=== PATIENT | male | born 1990 | race Hispanic/Latino ===

== ENCOUNTER 2019-03-19 12:59 | Emergency (ER) | payer SELFPAY ==
--- NOTE | 2019-03-19 13:42 | RAD REPORT ---
EXAM DESCRIPTION: RAD - Chest Pa And Lat (2 Views) - 03/19/2019 1:33 pm CLINICAL HISTORY: COUGH Chest pain. COMPARISON: No comparisons FINDINGS: The lungs are clear. The heart is normal in size. No displaced fractures. IMPRESSION: No acute or concerning finding suspected.
[2019-03-19] MEDS ORDERED: IPRATROPIUM BROM 0.5MG/2.5ML ONE (13:59)
[2019-03-19] MEDS ORDERED: predniSONE 20 MG TAB ONE (13:59)
[2019-03-19] MEDS ORDERED: ALBUTEROL 2.5 MG/3 ML NEB SOL ONE (13:59)
--- NOTE | 2019-03-19 14:19 | ER ---
Nurse's Notes [facility] Name: Dar Barth Age: 28 yrs Sex: Male : 1990 Arrival Date: 03/19/2019 Time: 13:01 Bed 14 Private MD: Diagnosis: Wheezing Presentation: 03/19 13:03 Presenting complaint: Patient states: "I've been wheezing since November". Pt states aa5 "I've been taking my mom's albuterol and it helps". Transition of care: patient was not received from another setting of care. Onset of symptoms was February 2019. Risk Assessment: Do you want to hurt yourself or someone else? Patient reports no desire to harm self or others. Initial Sepsis Screen: Does the patient meet any 2 criteria? No. Patient's initial sepsis screen is negative. Does the patient have a suspected source of infection? No. Patient's initial sepsis screen is negative. Care prior to arrival: None. 13:03 Method Of Arrival: Ambulatory aa5 13:03 Acuity: HÉCTOR 3 aa5 Historical: - Allergies: 13:06 No Known Allergies; aa5 - Home Meds: 13:06 None [Active]; aa5 - PMHx: 13:06 None; aa5 - PSHx: 13:06 None; aa5 - Immunization history:: Flu vaccine is not up to date. - Social history:: Smoking status: Patient/guardian denies using tobacco. - Ebola Screening: : No symptoms or risks identified at this time. Screenin:30 Abuse screen: Denies threats or abuse. Denies injuries from another. Nutritional ph screening: No deficits noted. Tuberculosis screening: No symptoms or risk factors identified. Fall Risk None identified. Assessment: 13:30 General: Appears in no apparent distress. comfortable, well groomed, Behavior is calm, ph cooperative, appropriate for age, Denies fever, feeling ill. Pain: Denies pain. Neuro: Level of Consciousness is awake, alert, obeys commands, Oriented to person, place, time, situation. Cardiovascular: Capillary refill < 3 seconds in bilateral fingers Patient's skin is warm and dry. Respiratory: Reports shortness of breath Airway is patent Respiratory effort is even, unlabored, Respiratory pattern is regular, symmetrical, Breath sounds are clear in left posterior upper lobe, right posterior upper lobe, left posterior lower lobe, right posterior middle lobe and right posterior lower lobe Breath sounds with wheezes in mediastinum Denies cough. Derm: Skin is intact, is healthy with good turgor, Skin is pink, warm \\T\\ dry. Musculoskeletal: Circulation, motion, and sensation intact. Range of motion: intact in all extremities. Vital Signs: 13:06 BP 135 / 89; Pulse 58; Resp 18 S; Temp 97.2(TE); Pulse Ox 99% on R/A; Weight 74.84 kg aa5 (R); Height 5 ft. 9 in. (175.26 cm) (R); Pain 0/10; 14:30 BP 126 / 78; Pulse 72; Resp 18; Temp 98.0; Pulse Ox 99% on R/A; ph 13:06 Body Mass Index 24.37 (74.84 kg, 175.26 cm) aa5 ED Course: 13:01 Patient arrived in ED. aa5 13:03 Arm band placed on. aa5 13:05 Triage completed. aa5 13:08 Whitney Espinoza [facility]C [facility]. kb 13:08 Musa Valera MD is Attending Physician. kb 13:30 Patient has correct armband on for positive identification. Bed in low position. Call ph light in reach. Side rails up X 1. 13:34 Chest Pa And Lat (2 Views) XRAY In Process Unspecified. EDMS 14:08 Josie Knight, RN is Primary Nurse. ph 14:40 No provider procedures requiring assistance completed. Patient did not have IV access ph during this emergency room visit. Administered Medications: 13:55 Drug: DuoNeb (3:1) (2.5 mg - 0.5 mg) 3 ml Route: Nebulizer; ph 14:30 Follow up: Response: No adverse reaction; Wheezing diminished ph 13:55 Drug: predniSONE 20 mg Route: PO; ph 14:30 Follow up: Response: No adverse reaction ph Outcome: 14:19 Discharge ordered by . kb 14:40 Patient left the ED. ph 14:40 Discharged to home ambulatory, with significant other. ph 14:40 Condition: good 14:40 Discharge instructions given to patient, Instructed on discharge instructions, follow up and referral plans. medication usage, Demonstrated understanding of instructions, follow-up care, medications, Prescriptions given X 2. Signatures: Dispatcher [employer] Whitney Rodriguez, PICKLER HELPER-C PICKLER HELPER-CkVeronica Colin, RN RN aa5 Josie Knight, RN RN ph
--- NOTE | 2019-03-19 14:19 | EDPHYS ---
Physician Documentation [facility] Name: Dar Barth Age: 28 yrs Sex: Male : 1990 Arrival Date: 03/19/2019 Time: 13:01 Bed 14 Private MD: PAYAL Physician Musa Valera HPI: 03/19 13:29 This 28 yrs old Male presents to ER via Ambulatory with complaints of Wheezing kb < 1 Year. 13:29 The patient presents to the emergency department with wheezing, Current therapy: kb albuterol inhaler. Onset: The symptoms/episode began/occurred 4 month(s) ago. Modifying factors: The symptoms are alleviated by inhaler, albuterol, the symptoms are aggravated by doing stuff too fast. Associated signs and symptoms: The patient has no apparent associated signs or symptoms. Severity of symptoms: At their worst the symptoms were moderate in the emergency department the symptoms have improved moderately. The patient has not experienced similar symptoms in the past. The patient has not recently seen a physician. Pt reports wheezing, trouble breathing and cough since November. Has been using his mother's albuterol inhaler for symptoms and it helps, but he ran out. FAmily history of asthma, but never diagnosed. . Historical: - Allergies: 13:06 No Known Allergies; aa5 - Home Meds: 13:06 None [Active]; aa5 - PMHx: 13:06 None; aa5 - PSHx: 13:06 None; aa5 - Immunization history:: Flu vaccine is not up to date. - Social history:: Smoking status: Patient/guardian denies using tobacco. - Ebola Screening: : No symptoms or risks identified at this time. ROS: 13:26 Constitutional: Negative for fever, chills, and weight loss, Eyes: Negative for injury, kb pain, redness, and discharge, ENT: Negative for injury, pain, and discharge, Neck: Negative for injury, pain, and swelling, Cardiovascular: Negative for chest pain, palpitations, and edema, Abdomen/GI: Negative for abdominal pain, nausea, vomiting, diarrhea, and constipation, : Negative for injury, bleeding, discharge, and swelling, MS/Extremity: Negative for injury and deformity, Skin: Negative for injury, rash, and discoloration, Neuro: Negative for headache, weakness, numbness, tingling, and seizure. 13:26 Respiratory: Positive for cough, shortness of breath, wheezing. Exam: 13:26 Constitutional: This is a well developed, well nourished patient who is awake, alert, kb and in no acute distress. Head/Face: Normocephalic, atraumatic. ENT: Nares patent. No nasal discharge, no septal abnormalities noted. Tympanic membranes are normal and external auditory canals are clear. Oropharynx with no redness, swelling, or masses, exudates, or evidence of obstruction, uvula midline. Mucous membranes moist. Neck: Trachea midline, no thyromegaly or masses palpated, and no cervical lymphadenopathy. Supple, full range of motion without nuchal rigidity, or vertebral point tenderness. No Meningismus. Chest/axilla: Normal chest wall appearance and motion. Nontender with no deformity. No lesions are appreciated. Cardiovascular: Regular rate and rhythm with a normal S1 and S2. No gallops, murmurs, or rubs. Normal PMI, no JVD. No pulse deficits. Respiratory: Lungs have equal breath sounds bilaterally, clear to auscultation and percussion. No rales, rhonchi or wheezes noted. No increased work of breathing, no retractions or nasal flaring. Abdomen/GI: Soft, non-tender, with normal bowel sounds. No distension or tympany. No guarding or rebound. No evidence of tenderness throughout. Skin: Warm, dry with normal turgor. Normal color with no rashes, no lesions, and no evidence of cellulitis. MS/ Extremity: Pulses equal, no cyanosis. Neurovascular intact. Full, normal range of motion. Neuro: Awake and alert, GCS 15, oriented to person, place, time, and situation. Cranial nerves II-XII grossly intact. Motor strength 5/5 in all extremities. Sensory grossly intact. Cerebellar exam normal. Normal gait. Vital Signs: 13:06 BP 135 / 89; Pulse 58; Resp 18 S; Temp 97.2(TE); Pulse Ox 99% on R/A; Weight 74.84 kg aa5 (R); Height 5 ft. 9 in. (175.26 cm) (R); Pain 0/10; 14:30 BP 126 / 78; Pulse 72; Resp 18; Temp 98.0; Pulse Ox 99% on R/A; ph 13:06 Body Mass Index 24.37 (74.84 kg, 175.26 cm) aa5 MDM: 13:17 Patient medically screened. [facility] 13:29 Data reviewed: vital signs, nurses notes. Data interpreted: Pulse oximetry: on room air kb is 99 %. Interpretation: normal. 14:18 Counseling: I had a detailed discussion with the patient and/or guardian regarding: the kb historical points, exam findings, and any diagnostic results supporting the discharge/admit diagnosis, radiology results, the need for outpatient follow up, a family practitioner, to return to the emergency department if symptoms worsen or persist or if there are any questions or concerns that arise at home. 03/19 13:14 Order name: Chest Pa And Lat (2 Views) XRAY; Complete Time: 13:45 kb Administered Medications: 13:55 Drug: DuoNeb (3:1) (2.5 mg - 0.5 mg) 3 ml Route: Nebulizer; ph 14:30 Follow up: Response: No adverse reaction; Wheezing diminished ph 13:55 Drug: predniSONE 20 mg Route: PO; ph 14:30 Follow up: Response: No adverse reaction ph Disposition: 03/20 12:08 Co-signature as Attending Physician, Musa Valera MD I agree with the assessment and [facility] plan of care. Disposition: 03/19/19 14:19 Discharged to Home. Impression: Wheezing. - Condition is Stable. - Discharge Instructions: Asthma, Adult, Tlns-pl-Eynb, Cough, Adult, Vtgt-fg-Scwr, Allergies, Qjtb-yo-Buzg. - Prescriptions for Prednisone 20 mg Oral Tablet - take 1 tablet by ORAL route once daily for 5 days; 5 tablet. Albuterol Sulfate 90 mcg/actuation - inhale 1-2 puff by INHALATION route every 4-6 hours; 1 Inhaler. - Medication Reconciliation Form, Thank You Letter, Antibiotic Education, Prescription Opioid Use, Work release form form. - Follow up: Emergency Department; When: As needed; Reason: Worsening of condition. Follow up: Private Physician; When: 2 - 3 days; Reason: Recheck today's complaints, Continuance of care, Re-evaluation by your physician. Signatures: Dispatcher [employer] Whitney Rodriguez, Musa Vasquez MD MD cha Calderon, Audri, RN RN aa5 Josie Knight RN RN ph Corrections: (The following items were deleted from the chart) 03/19 13:32 13:29 Severity of symptoms: At their worst the symptoms were moderate in the emergency kb department the symptoms are unchanged 13:33 13:29 Severity of symptoms: At their worst the symptoms were moderate in the emergency kb department the symptoms are unchanged have improved moderately, 14:40 14:19 03/19/2019 14:19 Discharged to Home. Impression: Wheezing. Condition is Stable. ph Forms are Medication Reconciliation Form, Thank You Letter, Antibiotic Education, Prescription Opioid Use. Follow up: Emergency Department; When: As needed; Reason: Worsening of condition. Follow up: Private Physician; When: 2 - 3 days; Reason: Recheck today's complaints, Continuance of care, Re-evaluation by your physician. kb
== END 2019-03-19 14:40 | disposition home or self-care (01) ==
LOC: ER 12:59
DX: R06.2 Wheezing (principal); R05 Cough
CPT/HCPCS: 71046; 94640; 99284; J7512

== ENCOUNTER 2021-12-21 11:22 | Emergency (ER) | payer SELFPAY ==
--- OUTSIDE RECORDS SUMMARY | 2021-12-21 11:25 | XMS REPORT | Continuity of Care Document ---
:1990 Author Organization [facility] t Address [address] [place] [address] Care Team Providers Name Role Phone Perry GARRISON, Celine Attending Clinician Celine AMADOR Attending Clinician Unavailable Payers Payer Name Policy Type Policy Number Effective Date Expiration Date S ource Problems This patient has no known problems. Allergies, Adverse Reactions, Alerts Allergy Allergy Status Severity Reaction(s) Onset Inactive Treating Comm ents Source Name Type Date Date Clinician No Known DA Active U 2018-11 [facility] Allergie 01-05 Clear s 00:00: Andrew 00 [facility] NO KNOWN Drug Active [facility] ALLERG Class ity of [facility] Social History Social Habit Start Date Stop Date Quantity Comments Source Sex Assigned At Uni versity [facility] Exposure to SARS-CoV-2 Not sure [facility] Smoking Status Start Date Stop Date Source Unknown if ever smoked [facility] Medications Ordered Filled Start Stop Current Ordering Indication Dosage Frequency Signature Comments Components Source Medication Medication Date Date Medication? Clinician (SIG) Name Name ipratropium 2019-11 Yes 3mL 3 mL, Unive rs -albuteroL 0-13 Inhalation ity of (DUONEB) 13:00: , QID, [place] 0.5 mg-3 00 First dose Medic al mg(2.5 mg on Mon base)/3 mL 09/08/20 nebulizer at 0800, solution 3 Until mL Discontinu ed, Routine NaCl 0.9% 2019-11 2020- No 1000mL at 999 Uni vers (NS) bolus 0-13 10-13 mL/hr, ity of infusion 11:30: 12:31 1,000 mL, [place] as 1,000 mL 00 :00 IV Medical Infusion, Branch ONCE, 1 dose, 09/08/20 at 0630, DARRYN predniSONE 2019- Yes [id number] Take 2 Univers 20 mg 0-13 tabs daily ity of tablet 00:00: for 7 days Medical Branch azithromyci 2019-11 Yes [id number] Take 500 Univers n 250 mg 0-13 mg day 1, ity of tablet 00:00: then 250 [place] 00 mg days 2 Medical to 5. Branch albuterol 2019-11 Yes [id number] 2.5mg Inhale 3 Univers 2.5 mg /3 0-13 mL every 4 ity of mL (0.083 00:00: (four) [place] %) 00 hours. May Medical nebulizer also Branch solution nebulize one extra every 6 hours. albuterol 2019-11 Yes [id number] 2{puff} Inhale 2 Univers 90 0-13 Puffs ity of mcg/actuati 00:00: every 4 [place] as on inhaler 00 (four) Medical hours as Branch needed for Wheezing or Shortness of Breath. Vital Signs Vital Name Observation Time Observation Value Comments Source Heart rate 2020-09-08 11:48:00 62 /min [facility] Respiratory rate 2020-09-08 11:48:00 18 /min [facility] Oxygen saturation in 2020-09-08 11:48:00 98 /min [facility] Arterial blood by [facility] Pulse oximetry Branch Systolic blood 2020-09-08 11:05:00 138 mm[facility]Hg[facility] Diastolic blood 2020-09-08 11:05:00 70 mm[Hg] [facility] Body temperature 2020-09-08 11:05:00 36.78 Susan [facility] Body height 2020-09-08 11:05:00 175.3 cm [facility] Body weight 2020-09-08 11:05:00 68.04 kg [facility] BMI 2020-09-08 11:05:00 22.15 kg/m2 [facility] Procedures Procedure Date / Time Performed Performing Clinician Sourc e XR CHEST 1 VW 2020-09-08 11:29:39 Kike Amador [facility] TROPONIN I 2020-09-08 11:18:00 Kike Amador [facility] HEPATIC FUNCTION 2020-09-08 11:18:00 Kike Amador [facility] PANEL ([id number]) Medical Branch (ALB,T.PRO,BILI T,BU/BC,ALT,AST,ALK PHOS) BASIC METABOLIC PANEL 2020-09-08 11:18:00 Kike Amador [facility] (NA, K, CL, CO2, Medical Branch GLUCOSE, BUN, CREATININE, CA) CBC WITH DIFF 2020-09-08 11:18:00 Kike Amador [facility] EKG-12 LEAD 2020-09-08 11:15:49 Kike Amador [facility] Encounters Start End Encounter Admission Attending Care Care Encounter Source Date/Time Date/Time Type Type Clinicians Facility Department ID 2020-09-08 2020-09-08 Emergency Perry [facility] [id number] Univers 06:02:00 07:37:00 Kike [facility] [id number] ity of Clear [id number] [facility] [id number] [place] [address] Branch (CLC) 2020-09-08 2020-09-08 Emergency X PERRY [facility] ERT [id number] Univers 06:02:00 06:02:00 KIKE delacruzy o f [facility] Results Test Description Test Time Test Comments Results Result Comments Source Troponin I 2020-09-08 11:51:00 Test Item Value Reference Range Interpretation Comme nts TROPONIN I (test code = 0.002 ng/mL See_Comment [Au tomated message] The 3613235224) system which ge nerated this result tra nsmitted reference range : <=0.034. The reference r dejon was not used to int erpret this result as normal/abnormal . JURGEN (test code = JURGEN) Equal or Less than 0.034 ng/ml---Normal ?Note: Cardiac troponin begins to rise 3-4 hours after the onset of ischemia. Repeat in 4-6 hours if the sample was drawn within 3-4 hours of the onset of the symptom and found normal. Between 0.035 and 0.120 ng/mL--- Borderline. Questionable myocardial injury or necrosis ? ?Note: Serial measurement may be necessary to confirm or exclude the diagnosis of myocardial injury or necrosis; Clinical correlation (symptoms, EKGs, imaging studies, and others) required; Repeat in 4-6 hours if clinically indicated. ? Equal or Higher than 0.121 ng/mL---Abnormal. Myocardial Injury or Necrosis Likely ? Biotin has been reported to cause a negative bias, interpret results relative to patient's use of biotin. ? Lab Interpretation (test Normal code = 27439-0) [facility] 1 [id number] 11:49:17Normal chest. RL: 6507 STUDY: SINGLE FRONTAL VIEW OF THE CHEST ORDERING PHYSICIAN: KIKE AMADOR DATE: ?09/08/2020 6:15 AM REASON FOR EXAM: ?Chest tightness TECHNIQUE: ?Frontal view of the chest COMPARISON: None available FINDINGS: Thecardiomediastinal silhouette is normal. The lungs are clear. ? The remaining osseous and soft tissue structures are unremarkable. [facility], Radiant Results Inft User - 09/08/2020 6:50 AM CDTSTUDY: SINGLE FRONTAL VIEW OF THE CHESTORDERING PHYSICIAN: KIKE AMADORDATE: 09/08/2020 6:15 AMREASON FOR EXAM: Chest tightnessTECHNIQUE: Frontal view of the chestCOMPARISON: None availableFINDINGS: The cardiomediastinal silhouette is normal. The lungs are clear. The remaining osseous and soft tissue structures are unremarkable.IMPRESSIONNormal chest.RL: 6507 [facility] (NA, K, CL, CO2, GLUCOSE, BUN, CREATININE, CA)2020-09-08 11:40:00 Test Item Value Reference Range Interpretation Comments NA (test code = 140 mmol/L 135-145 7264933895) K (test code = 3.8 mmol/L 3.5-5 8870110313) CL (test code = 104 mmol/L 98-108 0391592147) CO2 TOTAL (test code = 25 mmol/L 23-31 0153675461) AGAP (test code = 2-16 7574103004) BUN (test code = 10 mg/dL 7-23 3596451999) GLUCOSE (test code = 123 mg/dL 70-110 H 6237003420) CREATININE (test code = 0.67 mg/dL 0.6-1.25 4061103497) CALCIUM (test code = 9.6 mg/dL 8.6-10.6 5012613704) eGFR Calculation mL/min/1.73m2 (Non-) (test code = 1924685417) eGFR Calculation mL/min/1.73m2 () (test code = 1654215349) JURGEN (test code = JURGEN) Association of Glomerular Filtration Rate (GFR) and Staging of Kidney Disease* + --+ --+ ------+| GFR (mL/min/1.73 m2) ?| With Kidney Damage ?| ?Without Kidney Damage+ --------+ --------+ +| ?>90 ?| ?Stage one ?| ? Normal ?+ ---+ ---+ -------+| ?60-89 ?| ?Stage two ?| ? Decreased GFR ? + --+ --+ ------+| ?30-59 ?| ?Stage three ?| ? Stage three ? + --+ --+ ------+| ?15-29 ?| ?Stage four ? | ? Stage four ?+ ---+ ---+ -------+| ?<15 (or dialysis) ? ?| ?Stage five ? | ? Stage five ?+ ---+ ---+ -------+ *Each stage assumes the associated GFR level has been in effect for at least three months. ?Stages 1 to 5, with or without kidney disease, indicate chronic kidney disease. Notes: Determination of stages one and two (with eGFR >59mL/min/1.73 m2) requires estimation of kidney damage for at least three months as defined by structural or functional abnormalities of the kidney, manifested by either:Pathological abnormalities or Markers of kidney damage (including abnormalities in the composition of the blood or urine or abnormalities in imaging tests). Lab Interpretation Abnormal (test code = 52370-0) [facility] (ALB, T.PRO, BILI T, BU/BC, ALT, AST, ALK PHOS)2020-09-08 11:40:00 Test Item Value Reference Range Interpretation Comments TOTAL BILI (test code = 6307536519) 1.0 mg/dL 0.1-1.1 BILI UNCON (test code = 9558432914) 1.1 mg/dL 0.1-1.1 BILI CONJ (test code = 3993457951) 0.0 mg/dL 0-0.3 T PROTEIN (test code = 6466748858) 7.1 g/dL 6.3-8.2 ALBUMIN (test code = 5884598905) 4.2 g/dL 3.5-5 ALK PHOS (test code = 9931344434) 56 U/L 34-122 ALTv (test code = 1742-6) 22 U/L 5-50 AST(SGOT) (test code = 4609700724) 26 U/L 13-40 Lab Interpretation (test code = Normal 35721-5) [facility] with [id number] 11:27:00 Test Item Value Reference Range Interpretation Comments WBC (test code = See_Comment [Automated 7847-2) message] The sy stem which generated this result transmitted reference range : 4.20 - 10.70 10*3/?L. The reference range was not used to interpret this result as normal/abnormal . RBC (test code = See_Comment H [Automated 374-8) message] The sy stem which generated this result transmitted reference range : 4.26 - 5.52 10*6/?L. The reference range was not used to interpret this result as normal/abnormal . HGB (test code = 13.7 g/dL 12.2-16.4 718-7) HCT (test code = 41.5 % 38.4-49.3 4544-3) MCV (test code = 71.4 fL 81.7-95.6 L 787-2) MCH (test code = 23.6 pg 26.1-32.7 L 785-6) MCHC (test code = 33.0 g/dL 31.2-35 786-4) RDW-SD (test code = 38.4 fL 38.5-51.6 L 13661-2) RDW-CV (test code = 16.1 % 12.1-15.4 H 788-0) PLT (test code = See_Comment [Automated 777-3) message] The sy stem which generated this result transmitted reference range : 150 - 328 10*3/ ?L. The reference r dejon was not used to interpret this result as normal/abnormal . MPV (test code = 10.0 fL 9.8-13 59974-7) NRBC/100 WBC (test See_Comment [Automat ed code = 6144907848) message] The system which generated this result transmitted reference range : 0.0 - 10.0 /100 WBCs. The refer ence range was not u sed to interpret th is result as normal/abnormal . NRBC x10^3 (test code <0.01 See_Comment [Auto mated = 1766834882) message] The s ystem which generated this result transmitted reference range : 10*3/?L. The reference range was not used to interpret this result as normal/abnormal . GRAN MAT (NEUT) % 49.1 % (test code = 770-8) IMM GRAN % (test code 0.40 % = 8818277467) LYMPH % (test code = 39.0 % 736-9) MONO % (test code = 4.9 % 5905-5) EOS % (test code = 5.3 % 713-8) BASO % (test code = 1.3 % 706-2) GRAN MAT x10^3(ANC) 4.10 10*3/uL 1.99-6.95 (test code = 9118863523) IMM GRAN x10^3 (test 0.03 10*3/uL 0-0.06 code = 3728032958) LYMPH x10^3 (test code 3.26 10*3/uL 1.09-3.23 H = 731-0) MONO x10^3 (test code 0.41 10*3/uL 0.36-1.02 = 742-7) EOS x10^3 (test code = 0.44 10*3/uL 0.06-0.53 711-2) BASO x10^3 (test code 0.11 10*3/uL 0.01-0.09 H = 704-7) Lab Interpretation Abnormal (test code = 42131-6) [facility]"
--- NOTE | 2021-12-21 12:00 | EDPHYS ---
Physician Documentation [facility] Name: Dar Barth Age: 31 yrs Sex: Male : 1990 Arrival Date: 12/21/2021 Time: 11:25 Bed 30 Private MD: ED Physician Marisa Marcos HPI: 12/21 11:55 This 31 yrs old Male presents to ER via Ambulatory with complaints of cp Shortness Of Breath. 11:55 The patient has shortness of breath intermittent. Onset: The symptoms/episode cp began/occurred gradually. Patient reports history of asthma and running out of albuterol inhaler 2 weeks ago. Denies cough, sore throat, fever. Requesting refill of inhaler. Historical: - Allergies: 11:33 No Known Allergies; ll1 - PMHx: 11:33 Asthma; ll1 - PSHx: 11:33 None; ll1 - Immunization history:: Client reports having NOT received the Covid vaccine. - Social history:: Smoking status: Patient/guardian denies using tobacco, the patient reports quitting approximately 5 years ago. ROS: 11:56 All other systems are negative. cp Exam: 11:57 Head/Face: Normocephalic, atraumatic. cp 11:57 Constitutional: The patient appears in no acute distress, alert, awake, non-toxic, well developed, well nourished. 11:57 Chest/axilla: Inspection: normal. 11:57 Cardiovascular: Rate: normal. 11:57 Respiratory: the patient does not display signs of respiratory distress, Respirations: normal, no use of accessory muscles, no retractions, labored breathing, is not present, Breath sounds: are clear throughout, no decreased breath sounds, no stridor, no wheezing. 11:57 Abdomen/GI: Exam negative for discomfort, distension, guarding, Inspection: abdomen appears normal. Vital Signs: 11:33 BP 128 / 73; Pulse 65; Resp 17; Temp 98.4; Pulse Ox 97% on R/A; Weight 68.04 kg; Height ll1 5 ft. 9 in. (175.26 cm); Pain 0/10; 13:07 BP 117 / 61; Pulse 71; Resp 15; Pulse Ox 96% ; Pain 0/10; eo2 11:33 Body Mass Index 22.15 (68.04 kg, 175.26 cm) ll1 MDM: 11:52 Patient medically screened. cp 11:57 Differential diagnosis: asthma, Bronchitis pneumonia, URI, COVID-19. Data reviewed: cp vital signs, nurses notes, and as a result, I will discharge patient. Counseling: I had a detailed discussion with the patient and/or guardian regarding: the historical points, exam findings, and any diagnostic results supporting the discharge/admit diagnosis, the need for outpatient follow up, a family practitioner. Administered Medications: No medications were administered Disposition: 12:10 Chart complete. cp 12/22 04:42 Co-signature as Attending Physician, Marisa Marcos MD I agree with the assessment and sp3 plan of care. Disposition Summary: 12/21/21 11:59 Discharge Ordered Location: Home cp Problem: chronic cp Symptoms: are unchanged cp Condition: Stable cp Diagnosis - Unspecified asthma, uncomplicated cp Followup: cp - With: Private Physician - When: 2 - 3 days - Reason: Worsening of condition Discharge Instructions: - Discharge Summary Sheet cp - Asthma, Adult cp Forms: - Medication Reconciliation Form cp - Thank You Letter cp - Antibiotic Education cp - Prescription Opioid Use cp Prescriptions: - albuterol sulfate 90 mcg/actuation Inhalation HFA aerosol inhaler - inhale 1 puff by INHALATION route every 4-6 hours; 1 Inhaler; Refills: 0, cp Product Selection Permitted - Albuterol Sulfate 2.5 mg /3 mL (0.083 %) Inhalation Solution for Nebulization - inhale 1 unit by NEBULIZATION route every 8 hours As needed; 1 box; Refills: 0, cp Product Selection Permitted Signatures: Musa Ross PA PA cp Dean Garcia RN RN ll1 Marisa Marcos MD MD sp3
--- NOTE | 2021-12-21 12:00 | ER ---
Nurse's Notes [facility] Name: Dar Barth Age: 31 yrs Sex: Male : 1990 Arrival Date: 12/21/2021 Time: :25 Bed 30 Private MD: Diagnosis: Unspecified asthma, uncomplicated Presentation: 12/21 11:33 Chief complaint: Patient states: Out of albuterol for 2 weeks. SOB off/on since. ll1 Anxiety when SOB is severe. Coronavirus screen: Vaccine status: Patient reports being unvaccinated. Client denies travel out of the [place] in the last 14 days. difficulty breathing, shortness of breath, Client presents with at least one sign or symptom that may indicate coronavirus-19. Standard/surgical mask placed on the client. Ebola Screen: Patient denies travel to an Ebola-affected area in the 21 days before illness onset. Initial Sepsis Screen: Does the patient meet any 2 criteria? No. Patient's initial sepsis screen is negative. Does the patient have a suspected source of infection? No. Patient's initial sepsis screen is negative. Risk Assessment: Do you want to hurt yourself or someone else? Patient reports no desire to harm self or others. Onset of symptoms was December 07, 2021. 11:33 Method Of Arrival: Ambulatory 1 11:33 Acuity: HÉCTOR 4 ll1 Triage Assessment: 11:35 General: Appears uncomfortable, Behavior is cooperative, appropriate for age, anxious. ll1 Pain: Denies pain. Respiratory: Reports shortness of breath Onset: The symptoms/episode began/occurred 2 weeks off/on, the patient has mild shortness of breath. Historical: - Allergies: 11:33 No Known Allergies; ll1 - PMHx: 11:33 Asthma; ll1 - PSHx: 11:33 None; ll1 - Immunization history:: Client reports having NOT received the Covid vaccine. - Social history:: Smoking status: Patient/guardian denies using tobacco, the patient reports quitting approximately 5 years ago. Screenin:05 Abuse screen: Denies threats or abuse. Denies injuries from another. Nutritional eo2 screening: No deficits noted. Tuberculosis screening: No symptoms or risk factors identified. Fall Risk None identified. Assessment: 13:05 General: Appears in no apparent distress. comfortable. Pain: Denies pain. Neuro: No eo2 deficits noted. Level of Consciousness is awake, alert, obeys commands, Oriented to person, place, time, situation. Cardiovascular: Denies chest pain, Rhythm is regular. Respiratory: Reports shortness of breath pt reports SOB, states he ran out of his albuterol 2 weeks, pt appears in NAD. Airway is patent Respiratory effort is even, unlabored, Breath sounds are clear. Vital Signs: 11:33 BP 128 / 73; Pulse 65; Resp 17; Temp 98.4; Pulse Ox 97% on R/A; Weight 68.04 kg; Height ll1 5 ft. 9 in. (175.26 cm); Pain 0/10; 13:07 BP 117 / 61; Pulse 71; Resp 15; Pulse Ox 96% ; Pain 0/10; eo2 11:33 Body Mass Index 22.15 (68.04 kg, 175.26 cm) ll1 ED Course: 11:25 Patient arrived in ED. ds1 11:33 Arm band placed on Patient placed in an exam room, on a stretcher. ll1 11:35 Triage completed. ll1 11:48 Musa Ross PA is PHCP. cp 11:48 Marisa Marcos MD is Attending Physician. cp 12:14 Verito Dorsey, DEV is Primary Nurse. eo2 13:05 Patient has correct armband on for positive identification. eo2 13:05 No provider procedures requiring assistance completed. Patient did not have IV access eo2 during this emergency room visit. Administered Medications: No medications were administered Outcome: 11:59 Discharge ordered by MD. cp 13:07 Discharged to home ambulatory. eo2 13:07 Discharged to home ambulatory. 13:07 Condition: stable 13:07 Discharge instructions given to patient, Instructed on discharge instructions, follow up and referral plans. medication usage, Demonstrated understanding of instructions, follow-up care, medications, Prescriptions given X 2. 13:08 Patient left the ED. eo2 Signatures: Maria R Vaca ds1 Musa Ross PA PA cp Lewis, Lynsay, RN RN ll1 Verito Dorsey RN RN eo2
[2021-12-21 13:15] VITALS: TEMP 98.4
[2021-12-21 13:17] VITALS: BP 117/61; O2SAT 96
== END 2021-12-21 13:08 | disposition home or self-care (01) ==
LOC: ER 11:22
DX: J45.909 Unspecified asthma, uncomplicated (principal)

== ENCOUNTER 2023-01-30 05:37 | Emergency (ER) | payer OTHER, SELFPAY ==
--- OUTSIDE RECORDS SUMMARY | 2023-01-30 05:40 | XMS REPORT | Continuity of Care Document ---
:1990 Author Organization [facility] t Address [address] [place] [address] Care Team Providers Name Role Phone Asked, No Pcp Primary Care Physician Unavailable Kike Amador MD Attending Clinician KIKE AMADOR Attending Clinician Unavailable Payers Payer Name Policy Type Policy Number Effective Date Expiration Date S ource Problems This patient has no known problems. Allergies, Adverse Reactions, Alerts Allergy Allergy Status Severity Reaction(s) Onset Inactive Treating Comm ents Source Name Type Date Date Clinician No Known DA Active U 2018-11 [facility] Allergie 01-05 Clear s 00:00: Andrew 00 [facility] NO KNOWN Drug Active [facility] ALLERGIE [facility] Social History Social Habit Start Date Stop Date Quantity Comments Source Exposure to Not sure [facility] SARS-CoV-2 [facility] (event) Branch History of Smokes tobacco [facility] tobacco use daily Alcohol intake 2017-06-19 2017-06-19 Current drinker [facility] 00:00:00 00:00:00 of alcohol (finding) Tobacco Comment 2017-06-19 2017-06-19 one cig per day [facility] 00:00:00 00:00:00 Alcohol Comment 2017-06-19 2017-06-19 every other day [facility] 00:00:00 00:00:00 Sex [birth year] [facility] 00:00:00 00:00:00 Smoking Status Start Date Stop Date Source Unknown if ever smoked [facility] Smokes tobacco daily 2017-06-19 00:00:00 [facility] Medications Ordered Filled Start Stop Current Ordering Indication Dosage Frequency Signature Comments Components Source Medication Medication Date Date Medication? Clinician (SIG) Name Name ipratropium 2019-11 Yes 3mL 3 mL, Unive rs -albuteroL 0-13 Inhalation ity of (DUONEB) 13:00: , QID, [place] 0.5 mg-3 00 First dose Medic al mg(2.5 mg on Mon Branch base)/3 mL 09/08/20 nebulizer at 0800, solution 3 Until mL Discontinu ed, Routine NaCl 0.9% 2019-11 No 1000mL at 999 Uni vers (NS) bolus 0-13 10-13 mL/hr, ity of infusion 11:30: 12:31 1,000 mL, [place] as 1,000 mL 00 :00 IV Medical Infusion, Branch ONCE, 1 dose, [facility] 09/08/20 at 0630, DARRYN predniSONE 2019-11 Yes [id number] Take 2 Univers 20 mg 0-13 tabs daily ity of tablet 00:00: for 7 days [place] 00 [facility] azithromyci 2019-11 Yes [id number] Take 500 Univers n 250 mg 0-13 mg day 1, ity of tablet 00:00: then 250 [place] 00 mg days 2 Medical to 5. Branch albuterol 2019-11 Yes [id number] 2.5mg Inhale 3 Univers 2.5 mg /3 0-13 mL every 4 ity of mL (0.083 00:00: (four) [place] %) 00 hours. May Medical nebulizer also Branch solution nebulize one extra every 6 hours. albuterol 2019-11 Yes [id number] 2{puff} Inhale 2 Univers 90 0-13 Puffs ity of mcg/actuati 00:00: every 4 [place] as on inhaler 00 (four) Medical hours as Branch needed for Wheezing or Shortness of Breath. methocarbam Yes 500mg Q.[id number] Take 1 Methodi ol -[id number] (ROBAXIN) 00:00: 3D (500 mg Hospi ta 500 MG 00 total) by l tablet mouth 3 (three) times a day as needed for muscle spasms for up to 21 doses. Vital Signs Vital Name Observation Time Observation Value Comments Source Heart rate 2020-09-08 11:48:00 62 /min [facility] Respiratory rate 2020-09-08 11:48:00 18 /min [facility] Oxygen saturation in 2020-09-08 11:48:00 98 /min [facility] Arterial blood by [facility] Pulse oximetry Branch Systolic blood 2020-09-08 11:05:00 138 mm[Hg] [facility] Diastolic blood 2020-09-08 11:05:00 70 [facility]Hg[facility] temperature 2020-09-08 11:05:00 36.78 [facility] Body height 2020-09-08 11:05:00 175.3 cm [facility] Body weight 2020-09-08 11:05:00 68.04 kg [facility] BMI 2020-09-08 11:05:00 22.15 kg/m2 [facility] Procedures Procedure Date / Time Performed Performing Clinician Sour e XR CHEST 1 VW 2020-09-08 11:29:39 Kike Amador [facility] TROPONIN I 2020-09-08 11:18:00 Kike Amador [facility] HEPATIC FUNCTION 2020-09-08 11:18:00 Kike Amador [facility] PANEL ([id number]) [facility] (ALB,T.PRO,BILI T,BU/BC,ALT,AST,ALK PHOS) BASIC METABOLIC PANEL 2020-09-08 11:18:00 Kike Amador [facility] (NA, K, CL, CO2, Medical Branch GLUCOSE, BUN, CREATININE, CA) CBC WITH DIFF 2020-09-08 11:18:00 Kike Amador [facility] EKG-12 LEAD 2020-09-08 11:15:49 Kike Amador [facility] Plan of Care Planned Activity Planned Date Details Comments Source Future Scheduled 2022-11-11 COVID-19 VACCINE [facility] Test 21:44:47 (#1) [code = COVID-19 VACCINE (#1)] Future Scheduled 2022-11-11 INFLUENZA VACCINE [facility] Test 21:44:47 [code = INFLUENZA VACCINE] Encounters Start End Encounter Admission Attending Care Care Encounter Source Date/Time Date/Time Type Type Clinicians Facility Department ID 2020-09-08 2020-09-08 Emergency Perry ALARTI [id number] Univers 06:02:00 07:37:00 [facility] [id number] ity of Clear [id number] John Andrew [id number] [place] [id number] Branch (CLC) 2020-09-08 2020-09-08 Emergency X [facility] ERT [id number] Univers 06:02:00 06:02:00 KIKE carson o [facility] Results Test Description Test Time Test Comments Results Result Comments Source Troponin I 2020-09-08 11:51:00 Test Item Value Reference Range Interpretation Comme nts TROPONIN I (test code = 0.002 ng/mL See_Comment [Au tomated message] The [id number]) system which ge nerated this result tra [...] ? Lab Interpretation (test Normal code = 41118-7) [facility] 1 Paah0533-33-04 11:49:17Normal chest. RL: 6507 STUDY: SINGLE FRONTAL VIEW OF THE CHEST ORDERING PHYSICIAN: KIKE AMADOR DATE: ?09/08/2020 6:15 AM REASON FOR EXAM: ?Chest tightness TECHNIQUE: ?Frontal view of the chest COMPARISON: None available FINDINGS: Thecardiomediastinal silhouette is normal. The lungs are clear. ? The remaining osseous and soft tissuestructures are unremarkable. [facility], Radiant Results Inft User - 09/08/2020 6:50 AM CDTSTUDY: SINGLE FRONTAL VIEW OF THE CHESTORDERING PHYSICIAN: KIKE AMADORDATE: 09/08/2020 6:15 AMREASON FOR EXAM:Chest tightnessTECHNIQUE: Frontal view of the chestCOMPARISON: None availableFINDINGS: The cardiomediastinal silhouette is normal. The lungs are clear. The remaining osseous and soft tissue structures are unremarkable.IMPRESSIONNormal chest.RL: 6[facility] (NA, K, CL, CO2, GLUCOSE, BUN, CREATININE, CA)2020-09-08 11:40:00 Test Item Value Reference Range Interpretation Comments NA (test code = 140 mmol/L 135-145 2653621153) K (test code = 3.8 mmol/L 3.5-5 8687861188) CL (test code = 104 mmol/L 98-108 2804282392) CO2 TOTAL (test code = 25 mmol/L 23-31 8602899009) AGAP (test code = 2-16 9688318428) BUN (test code = 10 mg/dL 7-23 8361471307) GLUCOSE (test code = 123 mg/dL 70-110 H [id number]) CREATININE (test code = 0.67 mg/dL 0.6-1.25 6167928857) CALCIUM (test code = 9.6 mg/dL 8.6-10.6 9741090711) eGFR Calculation mL/min/1.73m2 (Non-) (test code = 6759429088) eGFR Calculation mL/min/1.73m2 () (test code = 1462340459) JURGEN (test code = JURGEN) Association of [...] tests). Lab Interpretation Abnormal (test code = 75508-3) [facility] (ALB, T.PRO, BILI T, BU/BC, ALT, AST, ALK PHOS)2020-09-08 11:40:00 Test Item Value Reference Range Interpretation Comments TOTAL BILI (test code = 6930214813) 1.0 mg/dL 0.1-1.1 BILI UNCON (test code = 1137383233) 1.1 mg/dL 0.1-1.1 BILI CONJ (test code = 1316115397) 0.0 mg/dL 0-0.3 T PROTEIN (test code = 6630090220) 7.1 g/dL 6.3-8.2 ALBUMIN (test code = 0401017717) 4.2 g/dL 3.5-5 ALK PHOS (test code = 0281727168) 56 U/L 34-122 ALTv (test code = 1742-6) 22 U/L 5-50 AST(SGOT) (test code = 7430036949) 26 U/L 13-40 Lab Interpretation (test code = Normal 82853-1) [facility] with Ddjouylepyyd2000-99-76 11:27:00 Test Item Value Reference Range Interpretation Comments WBC (test code = See_Comment [Automated 6690-2) message] The sy stem which generated this result transmitted reference range : 4.20 - 10.70 10*3/?L. The reference range was not used to interpret this result as normal/abnormal . RBC (test code = See_Comment H [Automated 789-8) message] The sy stem which generated this [...] (test code = 38.4 fL 38.5-51.6 L 98570-3) RDW-CV (test code = 16.1 % 12.1-15.4 H 788-0) PLT (test code = See_Comment [Automated 777-3) message] The sy stem which generated this result transmitted reference range : 150 - 328 10*3/ ?L. The reference r dejon was not used to interpret this result as normal/abnormal . MPV (test code = 10.0 fL 9.8-13 20963-0) NRBC/100 WBC (test See_Comment [Automat ed code = 8383964601) message] The system which generated this result transmitted reference range : 0.0 - 10.0 /100 WBCs. The refer ence range was not u sed to interpret th is result as normal/abnormal . NRBC x10^3 (test code <0.01 See_Comment [Auto mated = 5157597675) message] The s ystem which generated this result transmitted reference range : 10*3/?L. The reference range was not used to interpret this result as normal/abnormal . GRAN MAT (NEUT) % 49.1 % (test code = 770-8) IMM GRAN % (test code 0.40 % = 1719909930) LYMPH % (test code = 39.0 % 736-9) MONO % (test code = 4.9 % 5905-5) EOS % (test code = 5.3 % 713-8) BASO % (test code = 1.3 % 706-2) GRAN MAT x10^3(ANC) 4.10 10*3/uL 1.99-6.95 (test code = 5441659112) IMM GRAN x10^3 (test 0.03 10*3/uL 0-0.06 code = 6757028771) LYMPH x10^3 (test code 3.26 10*3/uL 1.09-3.23 H = 731-0) MONO x10^3 (test code 0.41 10*3/uL 0.36-1.02 = 742-7) EOS x10^3 (test code = 0.44 10*3/uL 0.06-0.53 711-2) BASO x10^3 (test code 0.11 10*3/uL 0.01-0.09 H = 704-7) Lab Interpretation Abnormal (test code = 86224-2) [facility]"
[2023-01-30] MEDS ORDERED: ALBUTEROL 2.5 MG/3 ML NEB SOL ONE (06:04)
[2023-01-30] MEDS ORDERED: IPRATROPIUM BROM 0.5MG/2.5ML ONE (06:05)
[2023-01-30] MEDS ORDERED: METHYLPREDNISOLONE 125 MG INJ ONE (06:19)
[2023-01-30] MEDS ORDERED: CODEINE 30MG/APAP 300MG TAB ONE (06:19)
[2023-01-30] MEDS ORDERED: Magnesium Sulfate 2gm IVPB 2 G/50 ML BAG IV ONE (06:20)
[2023-01-30] MEDS ORDERED: NA CHLORIDE 0.9% 500 ML ONE (06:20)
[2023-01-30 06:23] LABS: Absolute Lymphocytes (CBC) 2.8 K/uL (0.7-4.9); Hematocrit 47.2 % (39.6-49.0); Lymphocytes % 39.2 % (15.3-44.8); MCV 69.9 fL (80-100); MPV 7.1 fL (7.6-11.3); RBC Red Blood Cell Count 6.75 M/uL (4.33-5.43)
[2023-01-30 06:39] LABS: Albumin 4.1 g/dL (3.4-5.0); Bilirubin Direct 0.2 mg/dL (0-0.2); Bilirubin Total 0.8 mg/dL (0.2-1.0); Potassium 3.6 mmol/L (3.5-5.1); Protein, Total 7.6 g/dL (6.4-8.2)
--- NOTE | 2023-01-30 07:01 | ER ---
Nurse's Notes [facility] Name: Dar Barth Age: 32 yrs Sex: Male : 1990 Arrival Date: 01/30/2023 Time: 05:38 Bed 13 Private MD: Diagnosis: Moderate persistent asthma with (acute) exacerbation Presentation: 01/30 05:45 Chief complaint: Patient states: "I'm having an asthma attack". Coronavirus screen: At as6 this time, the client does not indicate any symptoms associated with coronavirus-19. Ebola Screen: No symptoms or risks identified at this time. Initial Sepsis Screen: Does the patient meet any 2 criteria? No. Patient's initial sepsis screen is negative. Does the patient have a suspected source of infection? No. Patient's initial sepsis screen is negative. Risk Assessment: Do you want to hurt yourself or someone else? Patient reports no desire to harm self or others. Onset of symptoms was January 30, 2023 at 05:10. 05:45 Method Of Arrival: Ambulatory as6 05:45 Acuity: HÉCTOR 3 as6 Triage Assessment: 05:49 General: Appears in no apparent distress. Behavior is calm, cooperative. Pain: as6 Complains of pain in chest. Respiratory: Respiratory effort is even, labored, Breath sounds with wheezes bilaterally. Historical: - Allergies: 05:48 No Known Allergies; as6 - Home Meds: 05:48 None [Active]; as6 - PMHx: 05:48 Asthma; as6 - PSHx: 05:48 None; as6 - Immunization history:: Client reports receiving the 2nd dose of the Covid vaccine. - Social history:: Smoking status: Patient denies any tobacco usage or history of. - Family history:: not pertinent. - Hospitalizations: : No recent hospitalization is reported. Screenin:49 [facility] ED Fall Risk Assessment (Adult) Score/Fall Risk Level 0 - 2 = Low Risk. Abuse as6 screen: Denies threats or abuse. Denies injuries from another. Nutritional screening: No deficits noted. Tuberculosis screening: No symptoms or risk factors identified. Assessment: 06:29 Reassessment: Patient states feeling better. Patient states symptoms have improved. ke1 06:51 Reassessment: No changes from previously documented assessment. Patient wants to leave ke because he is feeling better and needs to package pick up Md shaji notified. Vital Signs: 05:45 BP 123 / 91; Pulse 93; Resp 20 S; Temp 98.0(O); Pulse Ox 93% on R/A; Weight 68.04 kg as6 (R); Height 5 ft. 9 in. (175.26 cm) (R); Pain 9/10; 06:51 BP 119 / 84; Pulse 66; Resp 19; Pulse Ox 100% on R/A; Pain 0/10; ke1 05:45 Body Mass Index 22.15 (68.04 kg, 175.26 cm) as6 ED Course: 05:38 Patient arrived in ED. jj6 05:45 Keiko Jennings, DEV is Primary Nurse. ke1 05:48 Triage completed. as6 05:48 Arm band placed on. as6 05:48 Placed in gown. Bed in low position. Call light in reach. Side rails up X 1. Pulse ox as6 on. NIBP on. 05:54 Farshad Min MD is Attending Physician. sp4 06:10 Inserted saline lock: 20 gauge in right forearm, using aseptic technique. ke1 07:05 No provider procedures requiring assistance completed. IV discontinued. ke1 Administered Medications: 06:03 Drug: DuoNeb (albuterol 2.5 mg, ipratropium 0.5 mg) (3:1) (2.5 mg - 0.5 mg) 9 ml Route: ke1 Nebulizer; 06:28 Drug: SOLU-Medrol (methylPrednisoLONE) 125 mg Route: IVP; Site: right forearm; ke1 06:28 Drug: Magnesium Sulfate 2 grams Route: IVPB; Infused Over: 2 hrs; Site: right forearm; ke1 06:28 Drug: NS 0.9% 500 ml Route: IV; Rate: bolus; Site: right forearm; ke1 06:28 Not Given (Patient Refused): Tylenol #3 (300 mg-30 mg) 2 tablet PO once; RASS on ADMIN: ke1 Combtv4, Very Agttd3, Agttd2, Rstlss1, AlertClm0, Drwsy-1, Lt Sdtn-2, Mod Sdtn-3, Dp Sdtn-4, UnArsble-5 Medication: 05:49 VIS not applicable for this client. as6 Outcome: 07:00 Discharge ordered by . sp4 07:05 Discharged to home ambulatory. ke1 07:05 Condition: good 07:05 Discharge instructions given to patient. 07:06 Patient left the ED. ke1 Signatures: Laly Azul jj6 Wally Huff RN RN as6 Keiko Jennings RN RN ke1 Farshad Min MD MD sp4 Corrections: (The following items were deleted from the chart) 06:28 06:28 Tylenol #3 (300 mg-30 mg) 2 tablet PO ke1 ke1 06:28 06:28 NS 0.9% 500 ml IV at bolus in right antecubital ke1 ke1
--- NOTE | 2023-01-30 07:01 | EDPHYS ---
Physician Documentation [facility] Name: Dar Barth Age: 32 yrs Sex: Male : 1990 Arrival Date: 01/30/2023 Time: 05:38 Bed 13 Private MD: ED Physician Farshad Min HPI: 01/30 05:55 This 32 yrs old Male presents to ER via Ambulatory with complaints of Asthma sp4 Exacerbation. 06:52 32-year-old male with past medical history of intermittent asthma presents with acute sp4 onset of wheezing and shortness of breath associated with cough starting several hours prior to arrival, patient states he is out of his inhaler and albuterol at home, patient is not on inhaled steroids at home. Patient reports moderate to severe wheezing and shortness of breath. Historical: - Allergies: 05:48 No Known Allergies; as6 - Home Meds: 05:48 None [Active]; as6 - PMHx: 05:48 Asthma; as6 - PSHx: 05:48 None; as6 - Immunization history:: Client reports receiving the 2nd dose of the Covid vaccine. - Social history:: Smoking status: Patient denies any tobacco usage or history of. - Family history:: not pertinent. - Hospitalizations: : No recent hospitalization is reported. ROS: 06:52 Constitutional: Negative for fever, chills, and weight loss, Eyes: Negative for injury, sp4 pain, redness, and discharge, ENT: Negative for injury, pain, and discharge, Neck: Negative for injury, pain, and swelling, Cardiovascular: Negative for chest pain, palpitations, and edema, Respiratory: Positive for dyspnea, bilateral wheezing, positive for rapid breathing, Abdomen/GI: Negative for abdominal pain, nausea, vomiting, diarrhea, and constipation, Back: Negative for injury and pain, : Negative for injury, bleeding, discharge, and swelling, MS/Extremity: Negative for injury and deformity, Skin: Negative for injury, rash, and discoloration, Neuro: Negative for headache, weakness, numbness, tingling, and seizure, Allergy/Immunology: Negative for hives, rash, and allergies. Exam: 06:52 Constitutional: This is a well developed, well nourished patient who is awake, alert, sp4 appears uncomfortable, acutely dyspneic, speaks in full sentences. Head/Face: Normocephalic, atraumatic. Eyes: Pupils equal round and reactive to light, extra-ocular motions intact. Lids and lashes normal. Conjunctiva and sclera are non-icteric and not injected. Cornea within normal limits. Periorbital areas with no swelling, redness, or edema. ENT: Nares patent. No nasal discharge, no septal abnormalities noted. Tympanic membranes are normal and external auditory canals are clear. Oropharynx with no redness, swelling, or masses, exudates, or evidence of obstruction, uvula midline. Mucous membranes moist. Neck: Trachea midline, no thyromegaly or masses palpated, and no cervical lymphadenopathy. Supple, full range of motion without nuchal rigidity, or vertebral point tenderness. No Meningismus. Chest/axilla: Normal chest wall appearance and motion. Nontender with no deformity. No lesions are appreciated. Cardiovascular: Regular rate and rhythm with a normal S1 and S2. No gallops, murmurs, or rubs. Normal PMI, no JVD. No pulse deficits. Respiratory: Lungs have equal breath sounds bilaterally, normal percussion. No rales, rhonchi or , positive bilateral expiratory wheezes, positive for increased work of breathing, positive for retractions and accessory muscle use, able to speak in full sentences Abdomen/GI: Soft, non-tender, with normal bowel sounds. No distension or tympany. No guarding or rebound. No evidence of tenderness throughout. Back: No spinal tenderness. No costovertebral tenderness. Full range of motion. Skin: Warm, dry with normal turgor. Normal color with no rashes, no lesions, and no evidence of cellulitis. MS/ Extremity: Pulses equal, no cyanosis. Neurovascular intact. Full, normal range of motion. Neuro: Awake and alert, GCS 15, oriented to person, place, time, and situation. Cranial nerves II-XII grossly intact. Motor strength 5/5 in all extremities. Sensory grossly intact. Cerebellar exam normal. Normal gait. Psych: Awake, alert, with orientation to person, place and time. Behavior, mood, and affect are within normal limits. Vital Signs: 05:45 BP 123 / 91; Pulse 93; Resp 20 S; Temp 98.0(O); Pulse Ox 93% on R/A; Weight 68.04 kg as6 (R); Height 5 ft. 9 in. (175.26 cm) (R); Pain 9/10; 06:51 BP 119 / 84; Pulse 66; Resp 19; Pulse Ox 100% on R/A; Pain 0/10; ke1 05:45 Body Mass Index 22.15 (68.04 kg, 175.26 cm) as6 MDM: 06:10 Patient medically screened. sp4 06:52 Differential diagnosis: acute asthma, exercise-induced asthma, reactive airway, CHF, sp4 anaphylaxis, URI, foreign body. Antibiotic administration: Not indicated. Data reviewed: vital signs, nurses notes, lab test result(s), radiologic studies, plain films. Consideration of Admission/Observation Patient was admitted/placed on observation. Escalation of care including admission/observation considered. 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 06:58 ED course: This time patient is requesting to go home and since he has improved we see sp4 no impedance for discharge. 03 05:58 Order name: BMP sp4 01/30 05:58 Order name: CBC with Diff sp4 01/30 05:58 Order name: CPK sp4 01/30 05:58 Order name: Hepatic Function sp4 01/30 05:58 Order name: XRAY CXR (1 view) sp4 01/30 05:58 Order name: Cardiac monitoring; Complete Time: 06:42 sp4 01/30 05:58 Order name: IV Saline Lock; Complete Time: 06:30 sp4 01/30 05:58 Order name: Labs collected and sent; Complete Time: 06:30 sp4 01/30 05:58 Order name: O2 Per Protocol; Complete Time: 06:30 sp4 01/30 05:58 Order name: O2 Sat Monitoring; Complete Time: 06:30 sp4 01/30 05:59 Order name: COVID-19 SARS RT PCR sp4 01/30 06:26 Order name: CBC with Automated Diff EDMS 01/30 06:40 Order name: Basic Metabolic Panel EDMS 01/30 06:40 Order name: Liver (Hepatic) Function EDMS 01/30 06:40 Order name: Creatine Phosphokinase EDMS Administered Medications: 06:03 Drug: DuoNeb (albuterol 2.5 mg, ipratropium 0.5 mg) (3:1) (2.5 mg - 0.5 mg) 9 ml Route: ke1 Nebulizer; :28 Drug: SOLU-Medrol (methylPrednisoLONE) 125 mg Route: IVP; Site: right forearm; ke1 06:28 Drug: Magnesium Sulfate 2 grams Route: IVPB; Infused Over: 2 hrs; Site: right forearm; ke12 02: Drug: NS 0.9% 500 ml Route: IV; Rate: bolus; Site: right forearm; ke12 02:28 Not Given (Patient Refused): Tylenol #3 (300 mg-30 mg) 2 tablet PO once; RASS on ADMIN: ke1 Combtv4, Very Agttd3, Agttd2, Rstlss1, AlertClm0, Drwsy-1, Lt Sdtn-2, Mod Sdtn-3, Dp Sdtn-4, UnArsble-5 Disposition Summary: 01/30/23 07:00 Discharge Ordered Location: Home sp4 Problem: new sp4 Symptoms: have improved sp4 Condition: Stable sp4 Diagnosis - Moderate persistent asthma with (acute) exacerbation sp4 Followup: sp4 - With: Private Physician - When: 7 - 10 days - Reason: Re-evaluation by your physician Discharge Instructions: - Discharge Summary Sheet sp4 - Asthma, Adult sp4 Forms: - Thank You Letter sp4 Prescriptions: - Ventolin HFA 90 mcg/actuation Inhalation HFA aerosol inhaler - inhale 1 puff by INHALATION route every 4 hours PRN dyspnea use with spacer; 2 sp4 Pump; Refills: 0, Product Selection Permitted - Albuterol Sulfate 2.5 mg /3 mL (0.083 %) Inhalation Solution for Nebulization - inhale 1 unit by NEBULIZATION route every 4 hours As needed PRN dyspnea; 2 box; sp4 Refills: 0, Product Selection Permitted - Prednisone 20 mg Oral Tablet - take 2 tablets by ORAL route once daily for 5 days; 10 tablet; Refills: 0, sp4 Product Selection Permitted Signatures: Dispatcher [employer] Wally Ayoub RN RN as6 Keiko Jennings RN RN ke1 Farshad Min MD MD sp4
[2023-01-30 07:20] VITALS: BP 123/91; TEMP 98; O2SAT 93
[2023-01-30 07:44] LABS: White Blood Cell Scan OK (OK)
[2023-01-30 07:45] LABS: Blood Morphology Comment NOTED (NOT SEEN); Platelet Estimate ADEQ
--- NOTE | 2023-01-30 14:05 | RAD REPORT ---
EXAM DESCRIPTION: RAD - Chest Single View - 01/30/2023 6:12 am CLINICAL HISTORY: 32 years Male COUGH COMPARISON: None FINDINGS: Lung volumes adequate. Cardiac silhouette is normal in size. No pneumothorax. No large pleural effusion. No focal consolidation. No acute bony finding. IMPRESSION: No acute cardiopulmonary findings. Electronically signed by: Marizol Marie MD 01/30/2023 6:19 AM [employer] Due to temporary technical issues with the PACS/Fluency reporting system, reports are being signed by the in house radiologists without review as a courtesy to insure prompt reporting. The interpreting radiologist is fully responsible for the content of the report.
== END 2023-01-30 07:06 | disposition home or self-care (01) ==
LOC: ER 05:37
DX: J45.41 Moderate persistent asthma with (acute) exacerbation (principal)
CPT/HCPCS: 36415; 71045; 80048; 80076; 82550; 85025; 94640; 96374; 96375; 99284; J2930; J3475; J7040; J7613; J7644; U0003